=== PATIENT | male | born 1985 | race Caucasian/White ===

== ENCOUNTER 2017-03-30 19:21 | Emergency (ER) | payer MEDICAID, OTHER ==
[~2017-03-30] VITALS: Ht 180.3 cm; Wt 72.7 kg
[2017-03-30 19:38] VITALS: Ht 180.3 cm; Wt 72.7 kg
[2017-03-30] MEDS ORDERED: ONDANSETRON 4 MG INJ IV STA (20:37)
[2017-03-30] MEDS ORDERED: morphine 4 MG/ML VIAL IV STA (20:37)
[2017-03-30] MEDS ORDERED: CEFAZOLIN 1 GM/50 ML (PMX) 50 ML IVPB SCH (21:00)
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
[2017-03-30] MEDS ORDERED: LIDOCAINE 1% (MDV) 10 ML INJ INJ STA (22:48)
[2017-03-30] MEDS ORDERED: LIDOCAINE 1% (MDV) 10 ML INJ ONE (22:49)
[2017-03-30] MEDS ORDERED: IBUP800T25 PO (23:34)
[2017-03-30] MEDS ORDERED: HYDR-906 PO (23:34)
[2017-03-31 00:13] VITALS: BP 129/78; PULSE 94; RESP 16
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
== END 2017-03-30 23:36 | disposition home or self-care (01) ==
LOC: E/R 19:21
DX: S81.812A Laceration without foreign body, left lower leg, initial encounter (principal); S93.402A Sprain of unspecified ligament of left ankle, initial encounter; S83.92XA Sprain of unspecified site of left knee, initial encounter; S50.312A Abrasion of left elbow, initial encounter; S80.812A Abrasion, left lower leg, initial encounter; S80.811A Abrasion, right lower leg, initial encounter; V03.10XA Pedestrian on foot injured in collision with car, pick-up truck or van in traffic accident, initial encounter
CPT/HCPCS: 12002; 73562; 73590; 73610; 96374; 96375; J0690; J2270; J2405; Z7502; Z7610

== ENCOUNTER 2017-04-02 08:53 | Emergency (ER) | payer MEDICAID ==
[~2017-04-02] VITALS: Wt 84.1 kg
[~2017-04-02 08:53] MED LIST: HYDR-906 PO; IBUP800T25 PO
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
[2017-04-02] MEDS ORDERED: BACITUD TOP (10:26)
[2017-04-02] MEDS ORDERED: CEPH-443 PO (10:27)
[2017-04-02] MEDS ORDERED: BACITRACIN 0.9 GM OINT TOP ONE (10:30)
== END 2017-04-02 14:57 | disposition home or self-care (01) ==
LOC: FTE 08:53
DX: Z48.01 Encounter for change or removal of surgical wound dressing (principal)
CPT/HCPCS: 99284

== ENCOUNTER 2017-04-09 09:49 | Emergency (ER) | payer MEDICAID ==
[~2017-04-09] VITALS: Ht 180.3 cm; Wt 67.5 kg
[~2017-04-09 09:49] MED LIST changes: +BACITUD TOP; +CEPH-443 PO
[2017-04-09 09:59] VITALS: Ht 180.3 cm; Wt 67.5 kg
[2017-04-09] MEDS ORDERED: SULF1TAB31 PO (11:38)
[2017-04-09] MEDS ORDERED: ACET500C5 PO (11:38)
[2017-04-09] MEDS ORDERED: IBUP400T22 PO (11:38)
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
== END 2017-04-09 11:54 | disposition home or self-care (01) ==
LOC: FTE 09:49
DX: Z48.02 Encounter for removal of sutures (principal)
CPT/HCPCS: 99283